=== PATIENT | male | born 1950 | race Caucasian/White ===

== ENCOUNTER 2017-05-14 11:17 | Emergency (ER) | payer BC, OTHER ==
[2017-05-14] MEDS ORDERED: MORPHINE 2 MG/ML SYRINGE IVP STA ×3 (12:37→17:48)
[2017-05-14] MEDS ORDERED: ONDANSETRON 4 MG/2 ML VIAL IVP STA (12:37)
[2017-05-14] MEDS ORDERED: NITROGLYCERIN SL 0.4 MG TABLET SL STA (12:38)
[2017-05-14] MEDS ORDERED: ONDANSETRON 4 MG/2 ML VIAL ONE (12:47)
[2017-05-14] MEDS ORDERED: NITROGLYCERIN SL 0.4 MG TABLET SL ONE (12:47)
[2017-05-14] MEDS ORDERED: MORPHINE 2 MG/ML SYRINGE ONE ×3 (12:47→17:49)
--- NOTE | 2017-05-14 13:27 | XRAY Preliminary Report ---
Exam: XR Chest 1 View IMPRESSION: Stenting descending thoracic aorta. Otherwise, unremarkable exam. [facility] SITE ID: [id number]
--- NOTE | 2017-05-14 13:32 | XRAY Report ---
EXAM: CHEST RADIOGRAPHY EXAM DATE: 05/14/2017 12:58 PM. CLINICAL HISTORY: Aortic dissection 10 days ago. Patient presents with chest pain, weakness and short ness of breath since that time. COMPARISON: None. TECHNIQUE: 1 view. FINDINGS: Lungs/Pleura: No focal opacities evident. No pleural effusion. No pneumothorax. Mediastinum: Within exam limitations, cardiomediastinal contour is normal. Other: Endovascular stenting throughout the entirety of the descending thoracic aorta. IMPRESSION: Stenting descending thoracic aorta. Otherwise, unremarkable exam. [facility] Referring Provider Line: [phone] SITE ID: [id number]
[2017-05-14] MEDS ORDERED: IOPAMIDOL-300 100 ML VIAL IVP ONE (13:34)
[2017-05-14 13:42] LABS: BASOPHILS # (AUTO) 0.1 10^3/uL (0.0-0.1); EOSINOPHILS # (AUTO) 0.3 10^3/uL (0.0-0.7); EOSINOPHILS % (AUTO) 3.2 %; HGB - HEMOGLOBIN 10.2 g/dL (14.0-18.0); LYMPHOCYTES # (AUTO) 1.1 10^3/uL (1.5-3.5); LYMPHOCYTES % (AUTO) 10.7 %; MEAN CORPUSCULAR HEMOGLOBIN 31.6 pg (27.0-31.0); MEAN CORPUSCULAR HGB CONC 34.1 g/dL (32.0-36.0); MEAN CORPUSCULAR VOLUME 92.9 fL (80.0-94.0); MEAN PLATELET VOLUME 7.4 fL (7.4-11.4); MONOCYTES # (AUTO) 0.5 10^3/uL (0.0-1.0); MONOCYTES % (AUTO) 5.2 %; NEUTROPHILS % (AUTO) 79.9 %; RED BLOOD COUNT 3.22 10^6/uL (4.70-6.10); RED CELL DISTRIBUTION WIDTH 13.5 % (12.0-15.0)
[2017-05-14 13:54] LABS: BILIRUBIN,TOTAL 0.5 mg/dL (0.2-1.0); CALCIUM 9.3 mg/dL (8.5-10.3); CREATININE 1.4 mg/dL (0.6-1.2); POTASSIUM 4.5 mmol/L (3.5-5.0); TOTAL PROTEIN 7.3 g/dL (6.7-8.2)
--- NOTE | 2017-05-14 14:03 | ED Physician Documentation ---
History of Present Illness - Stated complaint Stated Complaint: CHEST/BACK PX - Chief complaint Chief Complaint: Cardiac - Additonal information Additional information: hx from pt 67 male 10 days s/p thoracic aortic dissection txed with endovascular stent at [facility] pt denies any prior CAD or cardiac stents since his discharge 5 days ago has had "heart burn" and L posterior shoulder pain fairly constantly, fatigue, and some dyspnea on exertion no fever cough no leg swelling he called his cardio and PMD and was sent to [facility] ER takes baby asa daily Review of Systems Constitutional: reports: Fatigue. denies: Fever, Chills Throat: denies: Sore throat Cardiac: reports: Chest pain / pressure Respiratory: reports: Dyspnea. denies: Cough GI: denies: Abdominal Pain Musculoskeletal: reports: Back pain Endocrine: denies: Easy bruising / bleeding Immunocompromised: denies: Immunocompromised PD PAST MEDICAL HISTORY - Past Medical History Past Medical History: Yes Cardiovascular: Hypertension, Other Other Past Medical History: AAA - Past Surgical History Past Surgical History: Yes General: Appendectomy Ortho: Arthroscopic surgery Cardiovascular: AAA HEENT: Tonsil/Adenoidectomy - Allergies Allergies/Adverse Reactions: Allergies Allergy/AdvReac Type Severity Reaction Status Date / Time codeine Allergy Unknown Verified 05/14/17 11:27 zolpidem tartrate * Allergy Unknown Verified 05/14/17 11:27 [From Mikeien] - Social History Does the pt smoke?: No Smoking Status: Never smoker Does the pt drink ETOH?: No Does the pt have substance abuse?: Yes Substance Use and Type: Marijuana - Immunizations Immunizations are current?: No PD ED PE NORMAL - Vitals Vital signs reviewed: Yes - General General: Alert and oriented X 3 - HEENT HEENT: Atraumatic - Neck Neck: Supple, no meningeal sign - Cardiac Cardiac: RRR - Respiratory Respiratory: No respiratory distress, Clear bilaterally - Abdomen Abdomen: Soft, Non tender - Extremities Extremities: No deformity, Normal ROM s pain, No edema, No calf tenderness / cord - Neuro Neuro: Alert and oriented X 3 Results - Vitals Vitals: Vital Signs - 24 hr 05/14/17 05/14/17 05/14/17 11:25 12:43 15:02 Temperature 36.3 C L Heart Rate 64 53 L 52 L Respiratory 18 16 14 Rate Blood Pressure 93/56 L 124/59 L 137/63 H O2 Saturation 99 100 100 07/17/17 07/17/17 15:52 16:35 Temperature Heart Rate 55 L 57 L Respiratory 18 18 Rate Blood Pressure 144/68 H 163/65 H O2 Saturation 99 100 Oxygen O2 Source Room air - EKG (time done) 1131 Rate: Rate (enter#) (54) Rhythm: NSR [place]: Normal Intervals: Normal IA QRS: Normal Ischemia: Normal ST segments - Labs Labs: Laboratory Tests 05/14/17 05/14/17 05/14/17 11:56 11:56 11:56 WBC 10.0 RBC 3.22 L Hgb 10.2 L Hct 30.0 L MCV 92.9 MCH 31.6 H MCHC 34.1 RDW 13.5 Plt Count 352 MPV 7.4 Neut # 8.0 H Lymph # 1.1 L [place] # 0.5 Eos # 0.3 Baso # 0.1 Absolute Nucleated RBC 0.00 Nucleated RBCs 0.0 Sodium 135 Potassium 4.5 Chloride 102 Carbon Dioxide 24 Anion Gap 9.0 BUN 27 H Creatinine 1.4 H Estimated GFR (MDRD) 50 L Glucose 141 H Calcium 9.3 Total Bilirubin 0.5 AST 21 ALT 29 Alkaline Phosphatase 89 Troponin I < 0.04 Total Protein 7.3 Albumin 3.6 Globulin 3.7 Albumin/Globulin Ratio 1.0 Lipase 47 - Rads (name of study) CXR Radiology: See rad report (no acute) CTA chest Radiology: See rad report (prior dissection, no leak, no further dissection, no PE, no effusion noted) CTA abd pelvis Radiology: See rad report (3.7 cm infrarenal aaa without dissection, diverticulosis, chronic lung dz, fat L inguinal hernia, mod spinal canal stenosis L5S1) PD MEDICAL DECISION MAKING - ED course ED course: CP and exertional SOA for 5 days after recent dissection repair CTA neg for PE dissection pericardial effusion etc so left with concern for new ACS reviewed records from [facility] - no cardiac CAD work up noted in the dc summary faxed as sx are mostly exertional doubt staying at [facility] for serial CE will be if use - no stress test etc available inpt here will contact pts bus monitor to req transfer to [facility] for further work up transfer center rec transfer to hospitalist so spoke to Dr Fortune who accepts pt in transfer pt advised of incidental CT findings GFR was 50 - pt had to have angio given recent aorta interventioin and hospitaliztation - given IVF - will need GFR rechecked over next few days Departure - Departure Disposition: 02 Transfer Acute Care Hosp Clinical Impression: Chest pain Qualifiers: Chest pain type: unspecified Qualified Code(s): R07.9 - Chest pain, unspecified Condition: Fair
--- NOTE | 2017-05-14 14:29 | CT Preliminary Report ---
Exam: CT Chest Angio (AORTA) IMPRESSION: 1. Prior stenting thoracic aorta without residual nor recurrent dissection. No evidence of an endolea k, progression of dissection nor aneurysm. 2. Otherwise, unremarkable exam. [facility] SITE ID: [id number]
--- NOTE | 2017-05-14 14:35 | CT Report ---
EXAM: CT ANGIOGRAM CHEST EXAM DATE: 05/14/2017 01:05 PM. CLINICAL HISTORY: Status post stent for aortic dissection 10 days ago - chest back pain. COMPARISON: None. TECHNIQUE: Routine helical imaging was performed through the chest in the arterial phase. IV contrast : 100 mL Isovue-300. This is the total amount of contrast utilized for the CT exams of chest, abdomen and pelvis. Reconstructions: Coronal, sagittal, and 3D MIP reconstructions of the aorta. FINDINGS: Vascular Structures: No aneurysmal dilatation. Ascending aorta measures 3.7 mm. Descending thoracic aorta measures 3.0 cm. Patient is status post stenting entirety of the descending thoracic aorta. No dissection beyond the stenting. No evidence of endovascular leak. Please note that there is some n onuniformity of the stent tip placements where there is overlapping at the stent components, especial ly prominent at axial image 77 and axial image 113. Lungs/Pleura: No consolidation, nodules, or edema. No effusions or pneumothorax. Mediastinum: Normal. No cardiac enlargement or adenopathy. Upper Abdomen: Unremarkable. Other: None. IMPRESSION: 1. Prior stenting thoracic aorta without residual nor recurrent dissection. No evidence of an endolea k, progression of dissection nor aneurysm. 2. Otherwise, unremarkable exam. [facility] Referring Provider Line: [phone] SITE ID: [id number]
--- NOTE | 2017-05-14 15:07 | CT Preliminary Report ---
Exam: CT Abdomen/Pelvis Angio IMPRESSION: 1. 3.7 cm infrarenal abdominal aortic aneurysm without dissection. 2. Colonic diverticulosis. 3. Chronic lung disease. 4. Small fat filled left inguinal hernia. 5. Moderate central spinal canal stenosis L5-S1. [facility] SITE ID: [id number]
--- NOTE | 2017-05-14 15:33 | CT Report ---
EXAM: CT ANGIOGRAM ABDOMEN AND PELVIS WITH CONTRAST EXAM DATE: 05/14/2017 01:45 PM. CLINICAL HISTORY: Persistent chest and back pain. Status post dissection stent 10 days ago. COMPARISONS: None. TECHNIQUE: Routine helical CT angiogram imaging was performed through the abdomen and pelvis in the a rterial phase. IV contrast: 100 mL Isovue-300. This is the total amount of contrast utilized for the CT chest, CTA abdomen and pelvis. Enteric contrast: No. Reconstructions: Coronal, sagittal, and 3D AR P reconstructions. In accordance with CT protocol optimization, one or more of the following dose reduction techniques w ere utilized for this exam: automated exposure control, adjustment of mA and/or KV based on patient s ize, or use of iterative reconstructive technique. FINDINGS: Vasculature: Partial visualization of the endovascular stenting of the descending thoracic aorta. There is a 3.7 cm maximum diameter infrarenal abdominal aortic aneurysm, superior margin 1.5 cm infer ior to the right renal artery origin, 0.8 cm inferior to the left renal artery origin. This aneurysm extends over a 5.7 cm length. The distal 3 cm of the abdominal aorta are of normal caliber. The rest of the abdominal vessels are unremarkable. No dissection. No periaortic bleed. Lung Bases: Chronic lung disease. Thoracic aortic stent partially visualized. Abdominal Solid Organs: The liver, spleen, pancreas, adrenal glands, gallbladder and kidneys are norm al in size and demonstrate no masses or abnormal enhancement. Peritoneal Cavity: Diverticuli off the colon. No free fluid, free air, or acute inflammatory process. Appendix not visualized. Pelvic Organs: 2 cm fat-filled left inguinal hernia. Bilateral inguinal clips. No free fluid. The maribell dder and visualized pelvic organs are within normal limits. Bones: Grade 1 degenerative subluxation at the degenerated L5-S1 disk with moderate central spinal ca nal stenosis. Other: None. IMPRESSION: 1. 3.7 cm infrarenal abdominal aortic aneurysm without dissection. 2. Colonic diverticulosis. 3. Chronic lung disease. 4. Small fat-filled left inguinal hernia. 5. Moderate central spinal canal stenosis L5-S1. [facility] Referring Provider Line: [phone] SITE ID: [id number]
[2017-05-14] MEDS ORDERED: SODIUM CHLORIDE 0.9% 1,000 ML IV ONE (15:50)
[2017-05-14] MEDS ORDERED: ASPIRIN CHEW 81 MG TABLET PO STA (16:28)
[2017-05-14] MEDS ORDERED: ASPIRIN CHEW 81 MG TABLET ONE (16:33)
[2017-05-14 17:49] VITALS: BP 151/82
== END 2017-05-14 17:54 | disposition short-term general hospital (02) ==
LOC: ED 11:17
DX: R07.9 Chest pain, unspecified (principal); I10 Essential (primary) hypertension; Z95.828 Presence of other vascular implants and grafts; Z98.890 Other specified postprocedural states
CPT/HCPCS: 36415; 71010; 71275; 74174; 80053; 83690; 84484; 85025; 93005; 96361; 96374; 96375; 96376; 99284; A9270; Q9967

== ENCOUNTER 2017-05-14 17:57 | Outpatient (CLI) | payer BC | END 2017-05-14 17:58 | disposition short-term general hospital (02) | LOC: EMS 17:57 | PROVIDERS: ATTEND Surgery | DX: R07.9 Chest pain, unspecified (principal) | CPT/HCPCS: A0425; A0426 ==

== ENCOUNTER 2020-12-07 11:14 | Outpatient (CLI) | payer MEDICARE ==
[2020-12-07 16:35] LABS: CALCIUM 9.6 mg/dL (8.5-10.3); CREATININE 1.3 mg/dL (0.6-1.2)
[2020-12-07 16:55] LABS: PROLACTIN 9.81 ng/mL
[2020-12-07 17:18] LABS: FOLLICLE STIMULATING HORMONE 19.95 mIU/mL
[2020-12-07 17:19] LABS: LUTEINIZING HORMONE 20.55 mIU/mL
== END 2020-12-07 11:15 | disposition home or self-care (01) ==
LOC: LAB.S 11:14
PROVIDERS: ATTEND Family Medicine
DX: R61 Generalized hyperhidrosis (principal); Z12.5 Encounter for screening for malignant neoplasm of prostate; N18.9 Chronic kidney disease, unspecified
CPT/HCPCS: 36415; 80048; 83001; 83002; 84146; 84402; 84403; G0103; 81599; 84153; 84270

== ENCOUNTER 2022-01-25 11:50 | Outpatient (CLI) | payer MEDICARE ==
[2022-01-25 15:15] LABS: BASOPHILS # (AUTO) 0.1 10^3/uL (0.0-0.1); BASOPHILS % (AUTO) 0.9 %; EOSINOPHILS # (AUTO) 0.1 10^3/uL (0.0-0.7); EOSINOPHILS % (AUTO) 2.5 %; HCT - HEMATOCRIT 39.5 % (42.0-52.0); HGB - HEMOGLOBIN 12.9 g/dL (14.0-18.0); LYMPHOCYTES # (AUTO) 0.8 10^3/uL (1.5-3.5); LYMPHOCYTES % (AUTO) 14.5 %; MEAN CORPUSCULAR HEMOGLOBIN 30.6 pg (27.0-31.0); MEAN CORPUSCULAR HGB CONC 32.7 g/dL (32.0-36.0); MEAN CORPUSCULAR VOLUME 93.8 fL (80.0-94.0); MEAN PLATELET VOLUME 10.2 fL (7.4-11.4); MONOCYTES # (AUTO) 0.5 10^3/uL (0.0-1.0); NEUTROPHILS % (AUTO) 72.2 %; PLT - PLATELET COUNT 222 10^3/uL (130-450); RED BLOOD COUNT 4.21 10^6/uL (4.70-6.10); RED CELL DISTRIBUTION WIDTH 12.2 % (12.0-15.0); WHITE BLOOD COUNT 5.6 x10^3/uL (4.8-10.8)
[2022-01-25 15:25] LABS: ALBUMIN 4.1 g/dL (3.2-5.5); ALBUMIN/GLOBULIN RATIO 1.5 (1.0-2.2); BILIRUBIN,TOTAL 0.4 mg/dL (0.2-1.0); CREATININE 1.3 mg/dL (0.6-1.2); POTASSIUM 4.3 mmol/L (3.5-5.0); TOTAL PROTEIN 6.8 g/dL (6.7-8.2)
[2022-01-25 20:47] LABS: ESTIMATED AVERAGE GLUCOSE 120 mg/dL (70-100); HEMOGLOBIN A1c% 5.8 % (4.27-6.07)
== END 2022-01-25 11:51 | disposition home or self-care (01) ==
LOC: LAB.S 11:50
PROVIDERS: ATTEND Podiatrist Foot & Ankle Surgery
DX: Z01.812 Encounter for preprocedural laboratory examination (principal)
CPT/HCPCS: 36415; 80053; 83036; 85025

== ENCOUNTER 2022-11-28 14:35 | Outpatient (CLI) | payer MEDICARE ==
[2022-11-28 15:10] LABS: HCT - HEMATOCRIT 37.6 % (42.0-52.0); HGB - HEMOGLOBIN 12.5 g/dL (14.0-18.0); MEAN CORPUSCULAR HEMOGLOBIN 31.9 pg (27.0-31.0); MEAN CORPUSCULAR HGB CONC 33.2 g/dL (32.0-36.0); MEAN CORPUSCULAR VOLUME 95.9 fL (80.0-94.0); MEAN PLATELET VOLUME 8.8 fL (7.4-11.4); RED BLOOD COUNT 3.92 10^6/uL (4.70-6.10); RED CELL DISTRIBUTION WIDTH 12.8 % (12.0-15.0); WHITE BLOOD COUNT 6.6 x10^3/uL (4.8-10.8)
[2022-11-29 11:54] LABS: ESTIMATED AVERAGE GLUCOSE 120 mg/dL (70-100); HEMOGLOBIN A1c% 5.8 % (4.27-6.07)
== END 2022-11-28 14:36 | disposition home or self-care (01) ==
LOC: LAB 14:35
DX: Z00.00 Encounter for general adult medical examination without abnormal findings (principal); I12.9 Hypertensive chronic kidney disease with stage 1 through stage 4 chronic kidney disease, or unspecified chronic kidney disease; N18.31 Chronic kidney disease, stage 3a; C61 Malignant neoplasm of prostate
CPT/HCPCS: 36415; 83036; 85027

== ENCOUNTER 2023-01-04 14:41 | Outpatient (CLI) | payer MEDICARE | END 2023-01-04 14:42 | disposition home or self-care (01) | LOC: LAB.S 14:41 | PROVIDERS: ATTEND Radiology Radiation Oncology | DX: C61 Malignant neoplasm of prostate (principal) | CPT/HCPCS: 36415; 84153 ==

== ENCOUNTER 2023-01-12 14:02 | Outpatient (CLI) | payer MEDICARE ==
[2023-01-12 14:32] LABS: CREATININE 1.6 mg/dL (0.6-1.2)
[2023-01-12] MEDS ORDERED: iohexoL-300 100 ML VIAL ONE (14:37)
--- NOTE | 2023-01-12 15:48 | Ultrasound Report ---
PROCEDURE: Carotid Doppler Complete INDICATIONS: AAA,CAROTID STENOSIS TECHNIQUE: Color and pulse Doppler interrogation was performed of both carotid systems, with image documentation and velocity measurements. COMPARISON: None. FINDINGS: Right side: Brachial blood pressure: 118/69 mm Hg. Common carotid artery peak systolic velocity: 66.4 cm/sec. Internal carotid artery peak systolic velocity: 152.8 cm/sec. Internal carotid artery end diastolic velocity: 35.7 cm/sec. External carotid artery peak systolic velocity: 108.8 cm/sec. ICA/CCA peak systolic ratio: 2.3 . Sidhu scale imaging description: Density calcified plaques at the bifurcation Percent internal carotid artery stenosis: 50-69% . Vertebral artery: Flow direction is antegrade. Left side: Brachial blood pressure: 121/69 mm Hg. Common carotid artery peak systolic velocity: 111.4 cm/sec. Internal carotid artery peak systolic velocity: 92.1 cm/sec. Internal carotid artery end diastolic velocity: 34.3 cm/sec. External carotid artery peak systolic velocity: 91.4 cm/sec. ICA/CCA peak systolic ratio: 0.8 . Sidhu scale imaging description: Density calcified plaques at the bifurcation Percent internal carotid artery stenosis: Less than 50%. Vertebral artery: Flow direction is antegrade. IMPRESSION: 1. 50-69% right internal carotid artery stenosis. 2. Less than 50% left internal carotid artery stenosis. 3. Bilateral echogenic plaques at the carotid bifurcations. 4. Antegrade vertebral artery flow bilaterally. The estimate of stenosis included in the report of the imaging study was calculated using the NASCET method Reviewed by: Efe Cotter MD on 01/12/2023 2:47 PM AKDT Approved by: Efe Cotter MD on 01/12/2023 2:47 PM AKDT Station ID: [id number]
== END 2023-01-12 14:03 | disposition home or self-care (01) ==
LOC: LAB 14:02
PROVIDERS: ATTEND Physician Assistant
DX: I71.40 Abdominal aortic aneurysm, without rupture, unspecified (principal); I65.23 Occlusion and stenosis of bilateral carotid arteries
CPT/HCPCS: 36415; 82565; 84520; 93880

== ENCOUNTER 2023-01-18 11:08 | Outpatient (CLI) | payer MEDICARE ==
[2023-01-18] MEDS ORDERED: iohexoL-300 100 ML VIAL IVP ONE (11:53)
[2023-01-18] MEDS ORDERED: iohexoL-300 100 ML VIAL ONE (12:21)
--- NOTE | 2023-01-18 16:56 | CT Report ---
PROCEDURE: ANGIO CHEST W/WO INDICATIONS: AAA CONTRAST: 100ml Omipaque 300 TECHNIQUE: After the administration of intravenous contrast, 2 mm axial images were acquired from the pulmonary apices to the posterior costophrenic angles during the arterial phase. In addition, 1 mm lung kernel and 5 mm soft tissue kernel reconstructions were performed. 3-dimensional coronal oblique maximum int ensity projection (MIP) reformats, 8 mm axial MIP, and 5 mm coronal and sagittal MPR reformats were t hen performed through the thorax. For radiation dose reduction, the following was used: automated exp osure control, adjustment of mA and/or kV according to patient size. COMPARISON: CT dated 05/14/2017 FINDINGS: Image quality: Excellent. Pulmonary arteries: Pulmonary arteries are normal in size, and demonstrate no intraluminal filling d efects to suggest central pulmonary embolism. Lungs and pleura: No evidence of pneumonia nor edema. 3 mm nodule within the right upper lobe anterol aterally, as before. 8mm and 4 mm nodules within the minor fissure, as before. No pleural effusions o r pneumothorax. Central and peripheral airways are patent. Mediastinum: Heart size is normal, without pericardial effusion. Moderate calcification of the coron meño vasculature. No mediastinal or hilar adenopathy. Thoracic aorta is normal in caliber and enhance ment. Descending thoracic aortic stent graft is present, as before, which is patent. Esophagus is no rmal in caliber, without hiatal hernia. Bones and chest wall: No suspicious bony lesions. Ribs and thoracic spine appear intact throughout. No axillary or supraclavicular adenopathy. The thyroid is normal in size and there are no incident al findings. Abdomen: Visualized upper abdominal solid organs appear normal in the early arterial phase of enhanc ement. IMPRESSION: 1. Stable descending thoracic aortic stent graft. 2. Coronary artery disease. 3. No change in pulmonary nodules. Follow-up is recommended as below. Solid nodules Solitary nodule size: <6 mm *low risk patients: no follow-up needed *high risk patients: optional CT at 12 months Solitary nodule size: 6-8 mm *low risk patients: follow-up at 6-12 months, then consider further follow-up at 18-24 months *high risk patients: initial follow-up CT at 6-12 months and then at 18-24 months if no change Solitary nodule size: >8 mm *either low or high risk patients *consider follow-up CT at 3 months, and/or CT-PET, and/or biopsy Multiple nodules size: <6 mm *low risk patients: no routine follow-up *high risk patients: optional CT at 12 months Multiple nodules size: 6-8 mm *low risk patients: follow-up at 3-6 months, then consider further follow-up at 18-24 months *high risk patients: follow-up at 3-6 months, then at 18-24 months if no change Multiple nodules size: >8 mm *low risk patients: follow-up at 3-6 months, then consider further follow-up at 18-24 months *high risk patients: follow-up at 3-6 months, then at 18-24 months if no change Subsolid nodules Solitary pure ground-glass nodule *nodule size <6mm *no CT follow-up required *nodule size "e6mm *follow up CT at 6-12 months, then every 2 years until 5 years Solitary part-solid nodule *nodule size <6mm *no CT follow-up required *nodule size "e6mm *follow-up CT at 3-6 months *if unchanged, and solid component remains <6mm, then annual follow-up for 5 years Multiple subsolid nodules *nodule size <6mm *follow-up CT at 3-6 months *consider further follow-up at 2 and 4 years if stable *nodule size "e6mm *follow-up CT at 3-6 months subsequent management based on the most suspicious nodule(s) Reviewed by: Junior Sanders MD on 01/18/2023 4:54 PM PDT Approved by: Junior Sanders MD on 01/18/2023 4:54 PM PDT Station ID: [id number]
--- NOTE | 2023-01-18 16:56 | CT Report ---
PROCEDURE: ANGIO ABDOMEN/PELVIS W INDICATIONS: AAA CONTRAST: 100ml Omipaque 300 TECHNIQUE: After the administration of intravenous contrast, 2.5 mm thick sections acquired from the diaphragm t o the symphysis. 10 mm maximum-intensity projection (MIP) reformats were then acquired. For radiati on dose reduction, the following was used: automated exposure control, adjustment of mA and/or kV ac cording to patient size. COMPARISON: 05/14/2017 CT examination. FINDINGS: Image quality: Excellent. Aorta: Lower thoracic aortic stent graft is present, incompletely visualized. Infrarenal abdominal a ortic aneurysm, with a maximal short axis diameter of 46 mm, increased from the prior examination. Mo derate mural thrombus. No significant stenosis. 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 Mesenteric arteries: Celiac trunk, superior and inferior mesenteric arteries appear patent. Right pelvic arteries: Moderate diffuse plaque causes mild diffuse stenosis of the common, internal, and external iliac arteries as well as the common femoral artery. Left pelvic arteries: Moderate diffuse plaque causes mild diffuse stenosis of the common, internal, and external iliac arteries as well as the common femoral artery. Extravascular soft tissues: Lung bases are clear. Heart size is normal. Liver and spleen are cassi l in size and enhancement. Gallbladder is within normal limits. Biliary system is non dilated. Ramirez creas enhances normally. No adrenal nodules. Kidneys are normal in size and enhancement, without hy dronephrosis. Non opacified bowel loops are normal in wall thickness and caliber. No free fluid or air. No retroperitoneal or mesenteric adenopathy. No ventral hernias. No suspicious bony lesions. No vertebral body compression fractures. IMPRESSION: 1. Increased abdominal aortic aneurysm as described above. 2. Lower thoracic aortic stent graft. Reviewed by: Junior Sanders MD on 01/18/2023 4:55 PM PDT Approved by: Junior Sanders MD on 01/18/2023 4:55 PM PDT Station ID: [id number]
== END 2023-01-18 11:09 | disposition home or self-care (01) ==
LOC: DI 11:08
PROVIDERS: ATTEND Physician Assistant
DX: I71.40 Abdominal aortic aneurysm, without rupture, unspecified (principal); I25.10 Atherosclerotic heart disease of native coronary artery without angina pectoris; Z95.828 Presence of other vascular implants and grafts; R91.8 Other nonspecific abnormal finding of lung field
CPT/HCPCS: 71275; 74174; Q9967

== ENCOUNTER 2023-07-09 12:00 | Outpatient (CLI) | payer MEDICARE | END 2023-07-09 12:01 | disposition home or self-care (01) | LOC: LAB.S 12:00 | PROVIDERS: ATTEND Radiology Radiation Oncology | DX: Z08 Encounter for follow-up examination after completed treatment for malignant neoplasm (principal); C61 Malignant neoplasm of prostate; Z85.46 Personal history of malignant neoplasm of prostate | CPT/HCPCS: 36415; 84153 ==

== ENCOUNTER 2023-11-08 06:56 | Outpatient (CLI) | payer MEDICARE ==
--- NOTE | 2023-11-08 15:06 | Ultrasound Report ---
PROCEDURE: Aorta Duplex Complete INDICATIONS: PAD, RIGHT FOOT PAIN, AAA TECHNIQUE: PROCEDURE: Aorta Duplex Complete INDICATIONS: PAD, RIGHT FOOT PAIN, AAA TECHNIQUE: Color and pulse Doppler interrogation was performed of the aorta and iliac arterial systems, with ai ge documentation. COMPARISON: None. FINDINGS: Aorta: 77 cm/sec, with biphasic flow. The mid infrarenal aorta measures 5.0 x 5.2 cm in the axial p nhi. The aorta measured approximately 4.8 x 4.7 cm in the same region on the comparison CT dated 12/28. Right lower extremity: Proximal common iliac artery: 100cm/sec, with biphasic flow. Distal common iliac artery: 63 cm/sec, with biphasic flow. Proximal external iliac artery: 80 cm/sec, with biphasic flow. Distal external iliac artery: 68 cm/sec, with biphasic flow. Common femoral artery: 149 cm/sec, with triphasic flow. Sidhu-scale imaging description: Calcified atheromatous plaque is present throughout. No focal hemody namically significant stenosis. Left lower extremity: Proximal common iliac artery: 132 cm/sec, with biphasic flow. Distal common iliac artery: 96 cm/sec, with biphasic flow. Proximal external iliac artery: 48 cm/sec, with biphasic flow. Distal external iliac artery: 72 cm/sec, with biphasic flow. Common femoral artery: 53 cm/sec, with phasic flow. Sidhu-scale imaging description: Atheromatous plaque and calcification is present throughout. No foca l hemodynamically significant stenosis. IMPRESSION: 1. Atheromatous plaque visualized throughout the bilateral iliac arteries. No focal hemodynamically s ignificant stenosis of the visualized pelvic arteries. 2. Fusiform aneurysmal dilatation of the abdominal aorta. This appears slightly increased in size whe n compared with the prior study dated 01/18/2023; however some variation in size may also be secondary to different imaging modalities. Reviewed by: Tracey Pagan MD on 11/08/2023 3:04 PM PST Approved by: Tracey Pagan MD on 11/08/2023 3:04 PM PST Station ID: [id number]
--- NOTE | 2023-11-14 11:21 | Ultrasound Report ---
PROCEDURE: Arterial Duplex Lwr Ext BL INDICATIONS: PAD, RIGHT FOOT PAIN, AAA, history of smoking TECHNIQUE: Color and pulse Doppler interrogation was performed of both lower extremity arterial systems, with im age documentation. COMPARISON: CTA dated 01/18/2023 FINDINGS: Right lower extremity: Common femoral artery: 149 cm/sec, with triphasic flow. Deep femoral artery: 46 cm/sec, with triphasic flow. Proximal superficial femoral artery: 19 cm/sec, with parvus tardus, low amplitude flow. Mid superficial femoral artery: 52 cm/sec, with parvus tardus, low amplitude flow. Distal superficial femoral artery: Occluded cm/sec Popliteal artery: 12 cm/sec, with severe parvus tardus flow. Posterior tibial artery: 14 cm/sec, with parvus tardus flow. Anterior tibial artery/dorsalis pedis: 19/6 cm/sec, with parvus tardus flow. Sidhu-scale imaging description: Occlusion with severe plaque of the SFA as noted above Left lower extremity: Common femoral artery: 53 cm/sec, with triphasic , turbulent flow. Deep femoral artery: 57 cm/sec, with triphasic flow. Proximal superficial femoral artery: 56 cm/sec, with parvus tardus flow. Mid superficial femoral artery: 91 cm/sec, with parvus tardus flow. Distal superficial femoral artery: 95 cm/sec, with parvus tardus flow. Popliteal artery: 38 cm/sec, with parvus tardus flow. Posterior tibial artery: 59 cm/sec, with parvus tardus flow. Anterior tibial artery/dorsalis pedis: 29/32 cm/sec, with parvus tardus flow. Sidhu-scale imaging description: Severe plaque of the SFA, PRESS MANAGER. IMPRESSION: 1. On the right, complete occlusion of the SFA , reconstitution of the popliteal but severe limitatio n of flow in the below the knee arteries. 2. On the left, severe atherosclerotic plaque of the common femoral artery, SFA with mild limitation of flow in the below the knee arteries. Reviewed by: Mckay Poole MD on 11/08/2023 12:18 PM PST Approved by: Mckay Poole MD on 11/08/2023 12:18 PM PST Station ID: [id number]
--- NOTE | 2023-11-14 11:21 | Ultrasound Report ---
PROCEDURE: Ankle Brachial Index INDICATIONS: PAD, RIGHT FOOT PAIN, AAA TECHNIQUE: Ankle-brachial indices were obtained bilaterally and recorded. COMPARISONS: U/S lower extremities dated today. FINDINGS: Right ankle brachial index (ABDULAZIZ): 0.61 Left ankle brachial index (ABDULAZIZ): 1.0 Healing potential: Ankle pressures >55 mm Hg in non-diabetics and >80 mm Hg in diabetics are likely to achieve primary h ealing of ischemic foot ulcers. Toe pressures >30 mm Hg are likely to achieve primary healing of ischemic foot ulcers, toe or transme tatarsal amputations. IMPRESSION: 1. Abnormally low ABDULAZIZ on the right. Correlate clinically. 2. Normal ABDULAZIZ on the left Reviewed by: Mckay Poole MD on 11/08/2023 12:22 PM PST Approved by: Mckay Poole MD on 11/08/2023 12:22 PM PST Station ID: [id number]
== END 2023-11-08 06:57 | disposition home or self-care (01) ==
LOC: DI 06:56
PROVIDERS: ATTEND Radiology Vascular & Interventional Radiology
DX: R94.39 Abnormal result of other cardiovascular function study (principal); I77.1 Stricture of artery; I70.202 Unspecified atherosclerosis of native arteries of extremities, left leg; I70.8 Atherosclerosis of other arteries; I77.811 Abdominal aortic ectasia
CPT/HCPCS: 93922; 93925; 93978

== ENCOUNTER 2024-04-05 15:16 | Outpatient (CLI) | payer MEDICARE | END 2024-04-05 23:59 | disposition critical access hospital (66) | LOC: EMS 15:16 | DX: I48.91 Unspecified atrial fibrillation (principal); R06.02 Shortness of breath; Z91.138 Patient's unintentional underdosing of medication regimen for other reason | CPT/HCPCS: A0425; A0427 ==

== ENCOUNTER 2024-04-05 15:43 | Observation (INO) | payer MEDICARE ==
--- NOTE | 2024-04-05 16:19 | ED Physician Documentation ---
PD HPI DYSPNEA - Stated complaint Stated Complaint: SOA - Chief complaint Chief Complaint: Cardiac - History obtained from History obtained from: Patient, EMS - History of Present Illness Timing - onset: Today Timing - onset during: Light activity Timing - duration: Minutes Timing - details: Abrupt onset, Now resolved Inciting event(s): Other (has been having rapid heart rate for brief periods and) Improved by: Rest Worsened by: Exertion Associated symptoms: Palpitations. No: Fever, Cough, Hemoptysis, Wheezing, Chest pain / discomfort, Diaphoresis, Bilateral edema, Unilateral edema, Anxiety Similar symptoms before: Diagnosis (rapid heart rate) Recently seen: Not recently seen - Additional information Additional information: Yinka Giraldo is a 74-year-old male with a history of aortic dissection and hypertension. He has had L carotid endarterectomy and has a AAA. He has significant restriction to his exertional capacity over the past 3 years and most recently was seen by his vascular surgeon for claudication with findings in both legs. For the past several months he has had episodes of rapid heart rate lasting only minutes. Today he was in the store when he developed severe exertional dyspnea and the medics were called. They administered IV diltiazem 20 and 30 mg doses with improvement in the rate but without lasting. He has heard of the term afib but not in relation to his own health. He takes some metoprolol twice per day and has not had his dose today. Review of Systems Constitutional: denies: Fever Ears: denies: Ear pain Nose: denies: Congestion Throat: denies: Sore throat Cardiac: reports: Palpitations. denies: Chest pain / pressure, Pedal edema, Calf pain Respiratory: reports: Dyspnea. denies: Cough, Hemoptysis, Wheezing GI: denies: Abdominal Pain, Nausea, Vomiting, Constipation, Diarrhea : denies: Dysuria, Frequency Skin: denies: Rash Musculoskeletal: denies: Neck pain, Back pain, Extremity pain Neurologic: reports: Other (fatigues easily for about 3 years.). denies: Generalized weakness, Focal weakness, Numbness PD PAST MEDICAL HISTORY - Past Medical History Cardiovascular: Hypertension, Other - Past Surgical History Past Surgical History: Yes General: Appendectomy Ortho: Arthroscopic surgery Cardiovascular: AAA HEENT: Tonsil/Adenoidectomy - Allergies Allergies/Adverse Reactions: Allergies Allergy/AdvReac Type Severity Reaction Status Date / Time codeine Allergy Unknown Verified 04/05/24 15:58 zolpidem tartrate * Allergy Unknown Verified 04/05/24 15:58 [From Ambien] tramadol AdvReac Nausea Verified 04/05/24 15:58 - Social History Does the pt smoke?: No Smoking Status: Never smoker Does the pt drink ETOH?: No Does the pt have substance abuse?: Yes - Immunizations Immunizations are current?: No PD ED PE NORMAL - Vitals Vital signs reviewed: Yes (marked tachycardia and hypertensive) - General General: Alert and oriented X 3, No acute distress, Well developed/nourished - HEENT HEENT: Atraumatic, Other (patch over left eye) - Neck Neck: Supple, no meningeal sign, No bony TTP, Other (A surgical repair of the left carotid is present and well-healed the right side has a bounding carotid pulse with a firm artery. There is a loud second sound in the carotid.) - Cardiac Cardiac: No murmur, Other (tachy and irregularly irregular) - Respiratory Respiratory: No respiratory distress, Clear bilaterally - Abdomen Abdomen: Soft, Non tender - Back Back: No CVA TTP, No spinal TTP - Derm Derm: Normal color, Warm and dry, No rash - Extremities Extremities: No deformity, No edema - Neuro Neuro: Alert and oriented X 3, residential treatment staff 2-12 intact, No motor deficit, No sensory deficit, Normal speech Eye Opening: Spontaneous Motor: Obeys Commands Verbal: Oriented GCS Score: 15 - Psych Psych: Normal mood, Normal affect Results - Vitals Vitals: Vital Signs - 24 hr 04/05/24 04/05/24 04/05/24 15:54 16:24 16:40 Temperature 37.2 C Heart Rate 152 H 169 H 167 H Respiratory 22 22 Rate Blood Pressure 157/102 H 148/96 H 177/101 H O2 Saturation 97 96 04/05/24 04/05/24 04/05/24 16:58 17:09 17:20 Temperature Heart Rate 140 H 141 H 140 H Respiratory 18 20 19 Rate Blood Pressure 158/80 H 152/104 H 163/102 H O2 Saturation 95 97 96 Oxygen O2 Source Room air - EKG (time done) 1601 EKG releavant findings:: EKG personally interpreted by author of this note. Relevant findings are: Rate: Rate (enter#) (164) Rhythm: Atrial fibrillation [place]: LAD Ischemia: Non specific changes Compare to prior EKG: Changed from prior EKG (SPT 05/14/17 rate has increased ) Computer interpretation: Disagree with computer (I believe this is afib) - Labs Labs: Laboratory Tests 04/05/24 04/05/24 04/05/24 16:35 16:35 16:35 WBC 8.2 RBC 4.09 L Hgb 12.6 L Hct 38.5 L MCV 94.1 H MCH 30.8 MCHC 32.7 RDW 12.4 Plt Count 208 MPV 8.9 Neut # (Auto) 6.9 H Lymph # (Auto) 0.6 L Otero # (Auto) 0.6 Eos # (Auto) 0.0 Baso # (Auto) 0.0 Absolute Nucleated RBC 0.00 Nucleated RBC % 0.0 Sodium 139 Potassium 3.8 Chloride 108 Carbon Dioxide 19 L Anion Gap 12.0 BUN 19 Creatinine 1.4 H Estimated GFR (MDRD) 49 L Glucose 129 H Calcium 9.6 Total Bilirubin 0.7 AST 13 ALT 12 Alkaline Phosphatase 52 Troponin I High Sens 14.5 B-Natriuretic Peptide 77 Total Protein 6.4 Albumin 4.3 Globulin 2.1 Albumin/Globulin Ratio 2.0 Lipase 97 H - Rads (name of study) chest Relevant Findings:: Prelim report reviewed (Impression: No acute cardiopulmonary process. Descending thoracic aortic stent graft seen.), EMP independent interpretation of test PD Medical Decision Making - ED course Complexity details: reviewed old records, reviewed results, re-evaluated patient, considered differential, d/w patient Reviewed Lab Results: We reviewed a complete blood blood count with a normal white blood cell count mildly depressed hemoglobin hematocrit normal platelets comparisons are similar for the hemoglobin and hematocrit. Dating for several years chemistries show normal electrolytes creatinine elevated at 1.4 glucose elevated at 129 liver functions are normal high-sensitivity troponin and BNP are normal. These laboratory results do not contribute to any specific diagnosis. They are reassuring for absence of acute coronary syndrome associated with this atrial fibrillation with rapid ventricular response. The patient does appear to be tolerating the rhythm without evidence of failure as indicated by a normal BNP, lack of Rales and lack of appearance of edema on chest x-ray. ED course: 74-year-old male with history of vasculopathy has developed atrial fibrillation with rapid ventricular response. By history it seems he has been having episodes of this and today's episode is lasting. He has been treated in the field with diltiazem revealing a rhythm of atrial fibrillation with rapid ventricular response and this did not convert or persist with a normal heart rate. Here in the emergency department is treated with 20 mg bolus followed by a 30 mg bolus of intravenous diltiazem and he is placed onto a diltiazem drip. Hospitalist was consulted and agrees to admit the patient to the CCU for further treatment. Departure - Departure Disposition: ED Place in Observation Clinical Impression: Atrial fibrillation with RVR Condition: Fair Forms: PCP List
[2024-04-05] MEDS: diltiaZEM INJ 5 MG/ML VIAL IVP STA ×2 (16:21→16:41)
[2024-04-05 16:38] LABS: BASOPHILS % (AUTO) 0.4 %; EOSINOPHILS % (AUTO) 0.5 %; HCT - HEMATOCRIT 38.5 % (42.0-52.0); HGB - HEMOGLOBIN 12.6 g/dL (14.0-18.0); LYMPHOCYTES # (AUTO) 0.6 10^3/uL (1.5-3.5); LYMPHOCYTES % (AUTO) 7.4 %; MEAN CORPUSCULAR HEMOGLOBIN 30.8 pg (27.0-31.0); MEAN CORPUSCULAR HGB CONC 32.7 g/dL (32.0-36.0); MEAN CORPUSCULAR VOLUME 94.1 fL (80.0-94.0); MEAN PLATELET VOLUME 8.9 fL (7.4-11.4); MONOCYTES # (AUTO) 0.6 10^3/uL (0.0-1.0); MONOCYTES % (AUTO) 7.1 %; NEUTROPHILS # (AUTO) 6.9 10^3/uL (1.5-6.6); PLT - PLATELET COUNT 208 10^3/uL (130-450); RED BLOOD COUNT 4.09 10^6/uL (4.70-6.10); RED CELL DISTRIBUTION WIDTH 12.4 % (12.0-15.0); WHITE BLOOD COUNT 8.2 x10^3/uL (4.8-10.8)
--- NOTE | 2024-04-05 16:42 | XRAY Report ---
PROCEDURE: Chest 1V INDICATIONS: chest pain TECHNIQUE: One view of the chest was acquired. COMPARISON: Correlation is made with a prior chest CT dated 01/18/2023 FINDINGS: Surgical changes and devices: A descending thoracic aortic stent grafts can be seen. Lungs and pleura: On the semiupright images, no large pneumothorax or large pleural effusions can be seen. No focal infiltrates are seen. Mediastinum: Mediastinal contours appear normal. Heart size is normal. Bones and chest wall: No suspicious bony lesions. Age-appropriate degenerative changes are seen. Overlying soft tissues appear unremarkable. IMPRESSION: No acute cardiopulmonary process. Descending thoracic aortic stent graft seen. Reviewed by: Reuben Ortiz MD on 04/05/2024 3:41 PM [facility]DT Approved by: Reuben Ortiz MD on 04/05/2024 3:41 PM AKDT Station ID: [id number]
[2024-04-05 16:59] LABS: TROPONIN I HIGH SENSITIVITY 14.5 ng/L (2.3-19.7)
[2024-04-05] MEDS: diltiaZEM INJ 125 MG in DEXTROSE 5% 100 ML IV STA (16:59)
[2024-04-05 17:01] LABS: ALBUMIN 4.3 g/dL (3.2-5.5); BILIRUBIN,TOTAL 0.7 mg/dL (0.2-1.0); CALCIUM 9.6 mg/dL (8.5-10.3); CREATININE 1.4 mg/dL (0.6-1.3); POTASSIUM 3.8 mmol/L (3.5-4.5); TOTAL PROTEIN 6.4 g/dL (6.4-8.9)
[2024-04-05] MEDS ORDERED: SODIUM CHLORIDE FLUSH 0.9% 10 ML SYRINGE IVP PRN (17:12)
[2024-04-05] MEDS ORDERED: ONDANSETRON ODT 4 MG TABLET TL PRN (17:19)
[2024-04-05] MEDS ORDERED: diltiaZEM INJ 125 MG in DEXTROSE 5% 100 ML IV STA (17:20)
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
[2024-04-05] MEDS: METOPROLOL 5 MG/5 ML VIAL IVP ONE ×2 (18:55→22:13)
[2024-04-05] MEDS: PROCAINAMIDE 1,000 MG in SODIUM CHLORIDE 0.9% 240 ML IV SCH (19:14)
[2024-04-05] MEDS: ONDANSETRON 4 MG/2 ML VIAL IVP PRN (20:01)
[2024-04-05] MEDS: PROCAINAMIDE 1,000 MG in SODIUM CHLORIDE 0.9% 240 ML IV ONE (20:04)
[2024-04-05] MEDS: APIXABAN 5 MG TABLET PO SCH (20:08)
[2024-04-05] MEDS: diltiaZEM INJ 125 MG in DEXTROSE 5% 100 ML IV SCH (20:57)
[2024-04-05] MEDS: oxyCODONE 5 MG TABLET PO PRN (21:12)
[2024-04-05] MEDS: ACETAMINOPHEN 325 MG TABLET PO PRN (21:12)
[2024-04-05] MEDS ORDERED: traZODone 50 MG TABLET PO STA (21:24)
[2024-04-05] MEDS: QUEtiapine 25 MG TABLET PO ONE (21:43)
[2024-04-05] MEDS: CALCIUM CARBONATE CHEW 500 MG TABLET PO STA (21:43)
[2024-04-06] MEDS: SODIUM CHLORIDE FLUSH 0.9% 10 ML SYRINGE IVP SCH (01:14)
[2024-04-06] MEDS: diltiaZEM INJ 125 MG in DEXTROSE 5% 100 ML IV SCH (01:32)
[2024-04-06 05:04] LABS: BASOPHILS # (AUTO) 0.1 10^3/uL (0.0-0.1); BASOPHILS % (AUTO) 0.8 %; EOSINOPHILS # (AUTO) 0.1 10^3/uL (0.0-0.7); EOSINOPHILS % (AUTO) 0.8 %; HCT - HEMATOCRIT 34.8 % (42.0-52.0); HGB - HEMOGLOBIN 11.8 g/dL (14.0-18.0); MEAN CORPUSCULAR HEMOGLOBIN 31.8 pg (27.0-31.0); MEAN CORPUSCULAR HGB CONC 33.9 g/dL (32.0-36.0); MEAN CORPUSCULAR VOLUME 93.8 fL (80.0-94.0); MEAN PLATELET VOLUME 9.1 fL (7.4-11.4); MONOCYTES # (AUTO) 0.7 10^3/uL (0.0-1.0); MONOCYTES % (AUTO) 9.8 %; NEUTROPHILS # (AUTO) 5.2 10^3/uL (1.5-6.6); PLT - PLATELET COUNT 207 10^3/uL (130-450); RED BLOOD COUNT 3.71 10^6/uL (4.70-6.10); RED CELL DISTRIBUTION WIDTH 12.6 % (12.0-15.0); WHITE BLOOD COUNT 7.1 x10^3/uL (4.8-10.8)
[2024-04-06 05:21] LABS: CALCIUM 9.5 mg/dL (8.5-10.3); CREATININE 1.5 mg/dL (0.6-1.3); POTASSIUM 4.1 mmol/L (3.5-4.5)
[2024-04-06] MEDS: METOPROLOL SUCCINATE 25 MG TABLET PO SCH (08:36)
--- NOTE | 2024-04-06 10:45 | Discharge Plan ---
Discharge Plan Problem Reviewed?: Yes Disposition: Home, Self Care Condition: Good Prescriptions: Apixaban [Eliquis] 5 mg PO BID 30 Days #60 tab Metoprolol Succinate 100 mg PO DAILY #30 tab amLODIPine [Norvasc] 5 mg PO DAILY 30 Days #30 tab Diet: Cardiac Activity Restrictions: No Restrictions Shower Restrictions: No Driving Restrictions: No Instruction Topics: Hypertension Dc, Atrial Fibrillation Health Concerns: You were brought to the hospital by ambulance for heart palpitations and feeling shortness this of breath. It sounds like this has been going on for at least a week. You are admitted from the emergency department to the intensive care unit and got medications to correct your heart rhythm. It is possible that by not taking your medications previously prescribed by your primary care provider that your heart rhythm became this way. It is very important that you stay on your medications. Plan of Treatment: We are recommending that you take Eliquis which is a blood thinner. You have a 4.8% risk of stroke within the next year without blood thinning medications. That is why we think this is important. We are also recommending that you take the medications that you normally take to control your blood pressure. The metoprolol is particularly important because this can also help your heart and help you stay out of atrial fibrillation. In the hospital we have talked about your desires for continued goals of care. We have recorded that you never want to have CPR and you do not want to be on machines. If you needed interventions to keep you alive short of that we would do these interventions. Care Goals: Our goals are to keep your heart beating regularly. Is important that you see your primary care provider within the next week so that he can review the details of your hospitalization with you and help you make further treatment decisions. It is also important that she see a healthcare network pricing consultant within the next few weeks. Your primary care provider can help this happen at the [facility]. You also need an echocardiogram which is an ultrasound of your heart to make sure that everything is working correctly. Assessment: Atrial fibrillation with rapid ventricular response Additional Instructions or Follow Up instructions: Follow-up with your primary care provider as soon as possible Also see a healthcare network pricing consultant. I think you have seen 1 previously at the [facility]. No Smoking: If you smoke, Please STOP! Call for help. Follow-up with: TONG VELASQUEZ MD [Physician No Access] -
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
[2024-04-06] MEDS: TAMSULOSIN 0.4 MG CAPSULE PO SCH (11:34)
[2024-04-06] MEDS: amLODIPine 5 MG TABLET PO SCH (11:34)
[2024-04-06] MEDS: TESTOSTERONE CYPIONATE 200 MG/ML VIAL IM SCH (11:34)
[2024-04-06] MEDS: CALCIUM CARBONATE CHEW 500 MG TABLET PO PRN (11:34)
--- NOTE | 2024-04-06 11:35 | PHARMACY PROGRESS NOTE ---
- Best Possible Medication History Admit Date and Time: 04/05/24 1712 Processed by: Pharmacy Medication History completed: Yes Patient Interview: Completed Secondary Source(s): Spouse/Significant other, Pharmacy records, Insurance records As the person ultimately responsible for medication therapy, providers are able to order a medication from an existing home medication list in [facility] via the "Reconcile Routine" prior to Confirmation of that medication by support teacher. Such practice is discouraged except when the physician, in their clinical judgment, deems that a medical need exists for a medication without regard to previous use.
[2024-04-06] MEDS: METOPROLOL 5 MG/5 ML VIAL IVP STA (11:48)
[2024-04-06 15:47] VITALS: BP 174/86; O2SAT 95
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
[2024-04-06] MEDS ORDERED: ATORVASTATIN 40 MG TABLET PO SCH (21:00)
[2024-04-06] MEDS ORDERED: QUEtiapine 25 MG TABLET PO SCH (21:00)
== END 2024-04-06 15:42 | disposition home or self-care (01) ==
LOC: EDUNIT# → ED 15:43 → ICU 17:12
PROVIDERS: ADMIT Physician Assistant Medical; ATTEND Physician Assistant Medical
DX: I48.91 Unspecified atrial fibrillation (principal); I12.9 Hypertensive chronic kidney disease with stage 1 through stage 4 chronic kidney disease, or unspecified chronic kidney disease; N18.2 Chronic kidney disease, stage 2 (mild); I73.9 Peripheral vascular disease, unspecified; E78.00 Pure hypercholesterolemia, unspecified; Z66 Do not resuscitate; Z91.199 Patient's noncompliance with other medical treatment and regimen due to unspecified reason
CPT/HCPCS: 36415; 71045; 80048; 80053; 83690; 83880; 84484; 85025; 87150; 93005; 96365; 96366; 96372; 96375; 96376; 99285; A9270; G0378; J2690

== ENCOUNTER 2024-04-07 09:21 | Outpatient (CLI) | payer MEDICARE | END 2024-04-07 23:59 | disposition short-term general hospital (02) | LOC: EMS 09:21 | DX: I47.10 Supraventricular tachycardia, unspecified (principal); R06.02 Shortness of breath | CPT/HCPCS: A0425; A0427 ==